=== PATIENT | male | born 1975 | race Caucasian/White ===

== ENCOUNTER 2023-09-18 13:40 | Inpatient (IN) | payer OTHER ==
[2023-09-18 14:01] VITALS: BMI 29.7
[2023-09-18] MEDS ORDERED: PIPERACILLIN/TAZOB 4.5 GM 4.5 GM in DEXTROSE 5%-WATER 100 ML IVPB ONE (15:23)
[2023-09-18 15:26] LABS: EPI CELLS >36 /uL (0-25.1); HYALINE CASTS 1 /uL (0-3.1); URINE APPEARANCE CLEAR; URINE BACTERIA 14 /uL (0-1359); URINE BILIRUBIN NEGATIVE (NEGATIVE); URINE COLOR YELLOW; URINE GLUCOSE (UA) 3+ (NEGATIVE); URINE KETONE NEGATIVE (NEGATIVE); URINE LEUK ESTERASE NEGATIVE (NEGATIVE); URINE NITRITE NEGATIVE (NEGATIVE); URINE PROTEIN 4+ (NEGATIVE); URINE RBC 51 /uL (0-23.9); URINE UROBILINOGEN 0.2 mg/dL (0.2-1.0); URINE WBC 33 /uL (0-25.8)
[2023-09-18] MEDS ORDERED: PIPERACILLIN/TAZOB 4.5 GM 4.5 GM/100 ML BAG IVPB ONE (16:01)
[2023-09-18 16:09] LABS: BASO % 0.3 % (0-2.0); EOS % 0.3 % (0-4.5); HEMATOCRIT 34.3 % (35.4-49); HEMOGLOBIN 11.4 GM/dL (11.7-16.9); MCH 26.5 pg (25.7-33.7); MCHC 33.1 g/dl (32.0-35.9); MEAN CELL VOLUME 80.1 fl (80-96); MEAN PLT VOLUME 8.6 fl (7.5-11.1); MONO % 5.4 % (3.8-10.2); PLATELET COUNT 368 10^3/uL (134-434); RBC 4.28 M/mm3 (4.00-5.60); RDW 13.9 % (11.9-15.9); WHITE BLOOD COUNT 15.7 K/mm3 (4.0-10.0)
[2023-09-18 16:20] LABS: CHLORIDE 100 mmol/L (98-107); SODIUM 132 mmol/L (136-145)
[2023-09-18 16:22] LABS: ALBUMIN 1.6 g/dl (3.4-5.0); CALCIUM 9.4 mg/dL (8.5-10.1)
[2023-09-18 16:23] LABS: ANION GAP 8 mmol/L (4-13); BLOOD UREA NITROGEN 26.6 mg/dL (7-18); CO2 24 mmol/L (21-32)
[2023-09-18 16:24] LABS: INR 1.15 (0.83-1.09); PROTHROMBIN TIME (PATIENT) 13.3 SEC (9.7-13.0)
[2023-09-18 16:25] LABS: CREATININE 2.3 mg/dL (0.55-1.3)
[2023-09-18 16:26] LABS: ACTIVATED PTT 29.1 SECONDS (25.2-36.5); SGOT/AST 7 U/L (15-37); SGPT/ALT 11 U/L (13-61)
[2023-09-18 16:27] LABS: BILIRUBIN,TOTAL 0.3 mg/dL (0.2-1); TOT PROT 5.6 g/dl (6.4-8.2)
[2023-09-18 16:28] LABS: ALK PHOS 136 U/L (45-117)
[2023-09-18 17:04] LABS: ERYTHROCYTE SEDIMENTATION RATE 93 mm/hr (0-10)
[2023-09-18 17:25] LABS: GLUCOSE,RANDOM 594 mg/dL (74-106)
[2023-09-18] MEDS ORDERED: SODIUM CHLORIDE 0.9% 500 ML INFUS.BAG IV ONE (19:34)
[2023-09-18] MEDS: INSULIN ASPART SLIDING SCALE (NOVOLOG) 1 VIAL SQ SCH (21:14)
[2023-09-18] MEDS ORDERED: INSULIN (NOVOLOG) ASPART 100 UNITS/ML 10ML VIAL ONE (21:18)
[2023-09-18] MEDS ORDERED: HEPARIN NA (PORCINE) 5,000 UNITS/ML 1ML VIAL ONE (21:23)
[2023-09-18] MEDS ORDERED: VANCOMYCIN/WATER 1250 MG 1,250 MG/250 ML BAG IVPB ONE (21:23)
[2023-09-18] MEDS: VANCOMYCIN/WATER 1250 MG 1,250 MG/250 ML BAG IVPB SCH (21:44)
[2023-09-18] MEDS: HEPARIN NA (PORCINE) 5,000 UNITS/ML 1ML VIAL SQ SCH (22:02)
[2023-09-18] MEDS ORDERED: INSULIN (LEVEMIR) 100 UNITS/ML UNITS SQ ONE (22:07)
[2023-09-19] MEDS ORDERED: PIPERACILLIN/TAZOB 3.375 GM 3.375 GM/50 ML BAG IVPB ONE ×2 (00:37→08:59)
[2023-09-19] MEDS: SODIUM CHLORIDE 1,000 ML IV SCH ×3 (00:50→21:21)
[2023-09-19] MEDS: PIPERACILLIN/TAZOB 3.375 GM 3.375 GM in DEXTROSE 5%-WATER - 50 ML IVPB SCH ×3 (01:50→16:52)
[2023-09-19] MEDS ORDERED: HEPARIN NA (PORCINE) 5,000 UNITS/ML 1ML VIAL ONE (06:06)
[2023-09-19] MEDS: HEPARIN NA (PORCINE) 5,000 UNITS/ML 1ML VIAL SQ SCH ×4 (06:16→23:52)
[2023-09-19 07:58] LABS: MCH 26.4 pg (25.7-33.7); MCHC 32.4 g/dl (32.0-35.9); MEAN CELL VOLUME 81.6 fl (80-96); PLATELET COUNT 342 10^3/uL (134-434); RDW 13.7 % (11.9-15.9)
[2023-09-19 08:08] LABS: POTASSIUM 3.2 mmol/L (3.5-5.1)
[2023-09-19 08:23] LABS: CALCIUM 8.8 mg/dL (8.5-10.1)
[2023-09-19 08:24] LABS: ALBUMIN 1.4 g/dl (3.4-5.0); BLOOD UREA NITROGEN 29.6 mg/dL (7-18)
[2023-09-19 08:27] LABS: BILIRUBIN,TOTAL 0.2 mg/dL (0.2-1); CREATININE 2.3 mg/dL (0.55-1.3)
[2023-09-19 08:28] LABS: TOT PROT 5.2 g/dl (6.4-8.2)
[2023-09-19] MEDS: INSULIN ASPART SLIDING SCALE (NOVOLOG) 1 VIAL SQ SCH ×4 (08:57→21:24)
[2023-09-19] MEDS ORDERED: VANCOMYCIN/WATER 1250 MG 1,250 MG/250 ML BAG IVPB ONE (10:19)
[2023-09-19] MEDS: VANCOMYCIN/WATER 1250 MG 1,250 MG/250 ML BAG IVPB SCH (10:19)
[2023-09-19] MEDS ORDERED: POTASSIUM CHLORIDE ORAL LIQUID 20 MEQ/15 ML PO ONE (16:29)
[2023-09-19] MEDS ORDERED: VANCOMYCIN/WATER FOR INJ (PEG) 1,000 MG/200 ML BAG IVPB ONE ×2 (16:46→22:00)
[2023-09-19] MEDS ORDERED: INSULIN (NOVOLOG) ASPART 100 UNITS/ML 10ML VIAL ONE ×2 (17:16→21:04)
[2023-09-19] MEDS: INSULIN (LEVEMIR) 100 UNITS/ML UNITS SQ SCH (22:35)
[2023-09-20] MEDS: PIPERACILLIN/TAZOB 3.375 GM 3.375 GM in DEXTROSE 5%-WATER - 50 ML IVPB SCH ×4 (00:11→16:35)
[2023-09-20] MEDS: SODIUM CHLORIDE 1,000 ML IV SCH ×2 (04:01→13:40)
[2023-09-20] MEDS: INSULIN (LEVEMIR) 100 UNITS/ML UNITS SQ SCH ×2 (06:06→22:10)
[2023-09-20] MEDS: INSULIN ASPART SLIDING SCALE (NOVOLOG) 1 VIAL SQ SCH ×4 (06:06→22:11)
[2023-09-20] MEDS: HEPARIN NA (PORCINE) 5,000 UNITS/ML 1ML VIAL SQ SCH ×3 (06:06→22:10)
[2023-09-20] MEDS: INSULIN (NOVOLOG) ASPART 100 UNITS/ML 10ML VIAL SQ SCH ×4 (06:08→16:35)
[2023-09-20] MEDS ORDERED: INSULIN (NOVOLOG) ASPART 100 UNITS/ML 10ML VIAL ONE ×3 (06:25→21:06)
[2023-09-20] MEDS: VANCOMYCIN/WATER 1250 MG 1,250 MG/250 ML BAG IVPB SCH (07:36)
[2023-09-20 09:27] LABS: BASO % 1.1 % (0-2.0); EOS % 1.7 % (0-4.5); HEMATOCRIT 29.3 % (35.4-49); HEMOGLOBIN 9.6 GM/dL (11.7-16.9); LYMPH % 9.5 % (8-40); MCH 26.8 pg (25.7-33.7); MCHC 32.9 g/dl (32.0-35.9); MEAN CELL VOLUME 81.4 fl (80-96); MEAN PLT VOLUME 8.4 fl (7.5-11.1); MONO % 7.6 % (3.8-10.2); NEUT % 80.1 % (42.8-82.8); PLATELET COUNT 327 10^3/uL (134-434); RDW 13.6 % (11.9-15.9); WHITE BLOOD COUNT 10.9 K/mm3 (4.0-10.0)
[2023-09-20 09:50] LABS: POTASSIUM 3.4 mmol/L (3.5-5.1)
[2023-09-20 09:52] LABS: MAGNESIUM 1.8 mg/dL (1.8-2.4)
[2023-09-20 09:54] LABS: BLOOD UREA NITROGEN 26.9 mg/dL (7-18)
[2023-09-20 09:55] LABS: ALBUMIN 1.2 g/dl (3.4-5.0)
[2023-09-20 09:57] LABS: BILIRUBIN,TOTAL 0.2 mg/dL (0.2-1); CREATININE 2.2 mg/dL (0.55-1.3); PHOSPHOROUS 2.9 mg/dL (2.5-4.9); TOT PROT 4.6 g/dl (6.4-8.2)
[2023-09-20 13:40] LABS: EPI CELLS 30 /uL (0-25.1); HYALINE CASTS 5 /uL (0-3.1); PH,URINE 5.5 (5.0-8.0); URINE APPEARANCE CLEAR; URINE BACTERIA 3 /uL (0-1359); URINE BILIRUBIN NEGATIVE (NEGATIVE); URINE COLOR YELLOW; URINE GLUCOSE (UA) 2+ (NEGATIVE); URINE KETONE NEGATIVE (NEGATIVE); URINE LEUK ESTERASE NEGATIVE (NEGATIVE); URINE NITRITE NEGATIVE (NEGATIVE); URINE PROTEIN 4+ (NEGATIVE); URINE UROBILINOGEN 0.2 mg/dL (0.2-1.0); URINE WBC 28 /uL (0-25.8)
[2023-09-20 14:14] LABS: URINE RBC 53.1 /uL (0-23.9)
[2023-09-20] MEDS ORDERED: POTASSIUM CHLORIDE ORAL LIQUID 20 MEQ/15 ML PO ONE (14:45)
[2023-09-20] MEDS ORDERED: ACETAMINOPHEN 500 MG TABLET (FP) PO ONE (15:00)
[2023-09-20] MEDS ORDERED: oxyCODONE HCL 5 MG TABLET PO PRN (15:32)
[2023-09-20] MEDS ORDERED: SODIUM CHLORIDE 1,000 ML IV SCH (18:46)
[2023-09-20] MEDS: LACTATED RINGERS SOLUTION 1,000 ML/1,000 ML INFUS.BAG IV SCH (19:03)
[2023-09-20] MEDS: ATORVASTATIN CA 40 MG TABLET (FP) PO SCH (22:11)
[2023-09-21] MEDS: PIPERACILLIN/TAZOB 3.375 GM 3.375 GM in DEXTROSE 5%-WATER - 50 ML IVPB SCH ×4 (00:04→23:33)
[2023-09-21] MEDS: INSULIN (NOVOLOG) ASPART 100 UNITS/ML 10ML VIAL SQ SCH ×3 (06:36→17:09)
[2023-09-21] MEDS: HEPARIN NA (PORCINE) 5,000 UNITS/ML 1ML VIAL SQ SCH ×3 (06:36→21:27)
[2023-09-21] MEDS: INSULIN ASPART SLIDING SCALE (NOVOLOG) 1 VIAL SQ SCH ×4 (06:37→21:23)
[2023-09-21] MEDS: INSULIN (LEVEMIR) 100 UNITS/ML UNITS SQ SCH ×2 (06:38→21:26)
[2023-09-21 10:17] LABS: BASO % 1.2 % (0-2.0); EOS % 2.8 % (0-4.5); HEMATOCRIT 32.2 % (35.4-49); HEMOGLOBIN 10.5 GM/dL (11.7-16.9); LYMPH % 16.3 % (8-40); MCH 26.5 pg (25.7-33.7); MCHC 32.5 g/dl (32.0-35.9); MEAN CELL VOLUME 81.5 fl (80-96); MEAN PLT VOLUME 8.2 fl (7.5-11.1); NEUT % 67.7 % (42.8-82.8); PLATELET COUNT 401 10^3/uL (134-434); RBC 3.95 M/mm3 (4.00-5.60); WHITE BLOOD COUNT 8.6 K/mm3 (4.0-10.0)
[2023-09-21] MEDS: ACETAMINOPHEN 325 MG TABLET (FP) PO PRN (10:18)
[2023-09-21 10:27] LABS: POTASSIUM 4.1 mmol/L (3.5-5.1)
[2023-09-21 10:39] LABS: ALBUMIN 1.4 g/dl (3.4-5.0)
[2023-09-21 10:40] LABS: BLOOD UREA NITROGEN 24.5 mg/dL (7-18); CALCIUM 9.1 mg/dL (8.5-10.1)
[2023-09-21 10:44] LABS: BILIRUBIN,TOTAL 0.6 mg/dL (0.2-1); TOT PROT 5.4 g/dl (6.4-8.2)
[2023-09-21] MEDS: LACTATED RINGERS SOLUTION 1,000 ML/1,000 ML INFUS.BAG IV SCH (21:21)
[2023-09-21] MEDS: ATORVASTATIN CA 40 MG TABLET (FP) PO SCH (21:27)
[2023-09-22] MEDS: LACTATED RINGERS SOLUTION 1,000 ML/1,000 ML INFUS.BAG IV SCH (02:13)
[2023-09-22] MEDS: HEPARIN NA (PORCINE) 5,000 UNITS/ML 1ML VIAL SQ SCH ×4 (02:44→21:50)
[2023-09-22] MEDS: INSULIN ASPART SLIDING SCALE (NOVOLOG) 1 VIAL SQ SCH ×4 (06:34→21:51)
[2023-09-22] MEDS: INSULIN (NOVOLOG) ASPART 100 UNITS/ML 10ML VIAL SQ SCH ×3 (06:34→17:07)
[2023-09-22] MEDS: INSULIN (LEVEMIR) 100 UNITS/ML UNITS SQ SCH ×2 (06:35→21:53)
[2023-09-22 06:37] VITALS: RESP 20
[2023-09-22] MEDS: PIPERACILLIN/TAZOB 3.375 GM 3.375 GM in DEXTROSE 5%-WATER - 50 ML IVPB SCH ×2 (08:58→16:58)
[2023-09-22] MEDS: ACETAMINOPHEN 325 MG TABLET (FP) PO PRN ×2 (10:19→17:00)
[2023-09-22 11:10] LABS: BASO % 0.6 % (0-2.0); EOS % 2.3 % (0-4.5); HEMATOCRIT 33.8 % (35.4-49); HEMOGLOBIN 11.1 GM/dL (11.7-16.9); LYMPH % 19.7 % (8-40); MCH 26.5 pg (25.7-33.7); MEAN CELL VOLUME 80.5 fl (80-96); MONO % 9.6 % (3.8-10.2); NEUT % 67.8 % (42.8-82.8); PLATELET COUNT 454 10^3/uL (134-434); RDW 13.9 % (11.9-15.9); WHITE BLOOD COUNT 8.6 K/mm3 (4.0-10.0)
[2023-09-22 11:53] LABS: CHLORIDE 110 mmol/L (98-107); POTASSIUM 4.1 mmol/L (3.5-5.1); SODIUM 140 mmol/L (136-145)
[2023-09-22 11:58] LABS: ALBUMIN 1.5 g/dl (3.4-5.0)
[2023-09-22 11:59] LABS: ANION GAP 6 mmol/L (4-13); BLOOD UREA NITROGEN 20.3 mg/dL (7-18); CO2 24 mmol/L (21-32); GLUCOSE,RANDOM 216 mg/dL (74-106); MAGNESIUM 1.8 mg/dL (1.8-2.4)
[2023-09-22 12:01] LABS: SGPT/ALT 13 U/L (13-61)
[2023-09-22 12:02] LABS: CREATININE 1.7 mg/dL (0.55-1.3); SGOT/AST 14 U/L (15-37)
[2023-09-22 12:03] LABS: BILIRUBIN,TOTAL < 0.1 mg/dL (0.2-1)
[2023-09-22 12:04] LABS: ALK PHOS 104 U/L (45-117)
[2023-09-22 12:08] LABS: CALCIUM 9.1 mg/dL (8.5-10.1); TOT PROT 5.5 g/dl (6.4-8.2)
[2023-09-22] MEDS ORDERED: VANCOMYCIN/WATER FOR INJ (PEG) 1,000 MG/200 ML BAG IVPB ONE (14:58)
[2023-09-22] MEDS: SODIUM CHLORIDE 0.45% 1,000 ML IV SCH (16:58)
[2023-09-22] MEDS ORDERED: INSULIN (NOVOLOG) ASPART 100 UNITS/ML 10ML VIAL ONE (21:35)
[2023-09-22] MEDS: ATORVASTATIN CA 40 MG TABLET (FP) PO SCH (21:55)
[2023-09-22 23:40] VITALS: PULSE 91; TEMP 97.9
[2023-09-23] MEDS: PIPERACILLIN/TAZOB 3.375 GM 3.375 GM in DEXTROSE 5%-WATER - 50 ML IVPB SCH ×2 (00:51→09:23)
[2023-09-23] MEDS: ACETAMINOPHEN 325 MG TABLET (FP) PO PRN (01:35)
[2023-09-23] MEDS: HEPARIN NA (PORCINE) 5,000 UNITS/ML 1ML VIAL SQ SCH ×2 (05:39→13:16)
[2023-09-23 05:59] VITALS: BP 124/82
[2023-09-23] MEDS: INSULIN ASPART SLIDING SCALE (NOVOLOG) 1 VIAL SQ SCH ×2 (06:29→12:13)
[2023-09-23] MEDS: INSULIN (NOVOLOG) ASPART 100 UNITS/ML 10ML VIAL SQ SCH ×2 (06:29→12:13)
[2023-09-23] MEDS: INSULIN (LEVEMIR) 100 UNITS/ML UNITS SQ SCH (06:30)
[2023-09-23] MEDS: SODIUM CHLORIDE 0.45% 1,000 ML IV SCH (09:30)
[2023-09-23 10:34] LABS: BASO % 0.8 % (0-2.0); HEMATOCRIT 29.4 % (35.4-49); HEMOGLOBIN 9.8 GM/dL (11.7-16.9); MCH 26.7 pg (25.7-33.7); MCHC 33.4 g/dl (32.0-35.9); MEAN CELL VOLUME 79.9 fl (80-96); MEAN PLT VOLUME 7.9 fl (7.5-11.1); MONO % 8.9 % (3.8-10.2); NEUT % 64.3 % (42.8-82.8); PLATELET COUNT 488 10^3/uL (134-434); RBC 3.67 M/mm3 (4.00-5.60); RDW 13.4 % (11.9-15.9)
[2023-09-23 11:27] LABS: POTASSIUM 4.5 mmol/L (3.5-5.1)
[2023-09-23 11:37] LABS: CALCIUM 8.7 mg/dL (8.5-10.1)
[2023-09-23 11:38] LABS: ALBUMIN 1.5 g/dl (3.4-5.0); BLOOD UREA NITROGEN 15.1 mg/dL (7-18); MAGNESIUM 1.9 mg/dL (1.8-2.4)
[2023-09-23 11:40] LABS: CREATININE 1.5 mg/dL (0.55-1.3)
[2023-09-23 11:42] LABS: BILIRUBIN,TOTAL 0.2 mg/dL (0.2-1); TOT PROT 5.7 g/dl (6.4-8.2)
[2023-09-23] MEDS ORDERED: AMOX TR/POT CLAV 875MG/125MG TABLETS (FP) PO SCH (17:30)
== END 2023-09-23 14:20 | disposition home or self-care (01) | DRG 501 ==
LOC: JER 13:40 → JERBED 19:35 → J8W 09-19 15:42
PROVIDERS: ADMIT Internal Medicine; ATTEND Nurse Practitioner Family
PROC: 0V95XZZ Drainage of Scrotum, External Approach (ICD-10-PCS; principal; 2023-09-19)
DX: N49.2 Inflammatory disorders of scrotum (principal); U07.1 COVID-19; N17.9 Acute kidney failure, unspecified; E11.65 Type 2 diabetes mellitus with hyperglycemia; E87.1 Hypo-osmolality and hyponatremia; Z79.84 Long term (current) use of oral hypoglycemic drugs; D64.9 Anemia, unspecified; E87.6 Hypokalemia
CPT/HCPCS: 0241U-QW; 36415; 72193-TC; 76775-TC; 80048; 80053; 80061; 81003; 82550; 82570; 82728; 82962; 83036; 83540; 83550; 83605; 83735; 84100; 84156; 85025; 85027; 85045; 85610; 85651; 85730; 86140; 86850; 86900; 86901; 87040; 87070; 87086; 87205; 93005; 93010; 99285-25; G0480; J1644